=== PATIENT | female | born 1970 | race Two or more races ===

== ENCOUNTER 2022-01-07 23:05 | Emergency (ER) | payer MEDICAID ==
[~2022-01-07] VITALS: Ht 162.6 cm; Wt 60.3 kg
--- NOTE | 2022-01-07 23:12 | NUR ---
pt bib ra, for altered mental status possible post seizure.
[2022-01-08] MEDS ORDERED: LORAZEPAM 2 MG/1 ML VIAL ONE (00:11)
[2022-01-08] MEDS ORDERED: LORAZEPAM 2 MG/1 ML VIAL IV ONE (00:15)
[2022-01-08 00:29] LABS: HEMATOCRIT 34.3 % (31.2-41.9); MEAN CORPUSCULAR HEMOGLOBIN 30.6 uug (24.7-32.8); MEAN CORPUSCULAR VOLUME 89.5 fL (75.5-95.3); PLATELET COUNT (AUTO) 260 K/uL (179-408)
[2022-01-08 00:32] LABS: CARBON DIOXIDE 24 mmol/L (21-32); CHLORIDE 109 mmol/L (98-107); CREATININE 1.2 mg/dL (0.6-1.3); GLUCOSE 149 mg/dL (74-106); POTASSIUM 3.2 mmol/L (3.5-5.1); UREA NITROGEN, BLOOD 15 mg/dL (7-18)
[2022-01-08 00:38] LABS: ALANINE AMINOTRANSFERASE 24 U/L (14-59); ALKALINE PHOSPHATASE 115 U/L (50-136); ASPARTATE AMINOTRANSFERASE 8 U/L (15-37); BILIRUBIN,DIRECT < 0.1 mg/dL (0.0-0.2); BILIRUBIN,TOTAL 0.2 mg/dL (0.2-1.0); TOTAL PROTEIN, SERUM 7.4 g/dL (6.4-8.2)
[2022-01-08 00:41] LABS: ACETAMINOPHEN < 2.0 ug/mL (10-30)
[2022-01-08 01:00] LABS: ETHANOL < 3 MG/DL (0-0)
[2022-01-08] MEDS ORDERED: POTASSIUM BICARBONATE/CIT AC 25 MEQ TABLET.EFF PO ONE (01:00)
[2022-01-08] MEDS ORDERED: LORA-259 PO (01:24)
[2022-01-08 01:51] VITALS: BP 110/76
--- NOTE | 2022-01-08 01:51 | NUR ---
Patient discharged to home in stable condition. Written and verbal after care instructions given. Patient verbalizes understanding of instructions. Stressed follow up or return to ER for worsening s/s.
== END 2022-01-08 01:52 | disposition home or self-care (01) ==
LOC: ER 23:07
DX: F41.9 Anxiety disorder, unspecified (principal); E87.6 Hypokalemia; R94.31 Abnormal electrocardiogram [ECG] [EKG]; G40.909 Epilepsy, unspecified, not intractable, without status epilepticus
CPT/HCPCS: 36415; 70450; 80048; 80076; 80299; 80320; 83735; 85025; 93005; 96374; 99285; J2060; A4663; G0480

== ENCOUNTER 2024-07-17 16:39 | Emergency (ER) | payer MEDICAID ==
[~2024-07-17] VITALS: Ht 154.9 cm; Wt 55.3 kg
[~2024-07-17 16:39] MED LIST: LORA-259 PO
[2024-07-17] MEDS ORDERED: TOPI15CA11 PO (18:21)
[2024-07-17] MEDS ORDERED: LACO50TA2 PO (18:21)
[2024-07-17 18:22] LABS: BASOPHILS # (AUTO) 0.1 K/UL (0.0-0.2); BASOPHILS % (AUTO) 1.2 % (0.0-2.0); EOSINOPHILS # (AUTO) 0.1 K/uL (0.0-0.7); EOSINOPHILS % (AUTO) 1.4 % (0.0-7.0); HEMATOCRIT 34.4 % (31.2-41.9); HEMOGLOBIN 11.6 g/dL (10.9-14.3); LYMPHOCYTES # (AUTO) 1.9 K/uL (0.8-4.8); LYMPHOCYTES % (AUTO) 33.2 % (20.5-51.5); MEAN CORPUSCULAR HEMOGLOBIN 30.7 uug (24.7-32.8); MEAN CORPUSCULAR HGB CONC 34 g/dL (32.3-35.6); MEAN CORPUSCULAR VOLUME 91.3 fL (75.5-95.3); MONOCYTES # (AUTO) 0.3 K/uL (0.1-1.30); MONOCYTES % (AUTO) 5.9 % (0.0-11.0); NEUTROPHILS # (AUTO) 3.4 K/uL (1.8-8.9); NEUTROPHILS % (AUTO) 58.3 % (38.5-71.5); PLATELET COUNT (AUTO) 266 K/uL (179-408); RED BLOOD CELL COUNT(AUTO) 3.77 MIL/uL (3.63-4.92); RED CELL DISTRIBUTION WIDTH 13.2 % (12.3-17.7); WHITE BLOOD COUNT (AUTO) 5.8 K/uL (3.8-11.8)
[2024-07-17 18:29] LABS: DIFFERENTIAL COMMENT 1
[2024-07-17 18:31] LABS: CALCIUM 9.6 mg/dL (8.5-10.1); CREATININE 0.7 mg/dL (0.6-1.3); POTASSIUM 3.6 mmol/L (3.5-5.1)
[2024-07-17 18:37] LABS: ALBUMIN 3.9 g/dL (3.4-5.0); BILIRUBIN,DIRECT 0.1 mg/dL (0.0-0.2); BILIRUBIN,TOTAL 0.3 mg/dL (0.2-1.0); MAGNESIUM 2.1 mg/dL (1.8-2.4); TOTAL PROTEIN, SERUM 7.3 g/dL (6.4-8.2)
[2024-07-17 18:45] LABS: THYROID STIMULATING HORMONE 4.014 mIU/mL (0.358-3.740)
[2024-07-18 02:03] VITALS: BP 115/64; TEMP 98.7; O2SAT 100
== END 2024-07-17 22:00 | disposition home or self-care (01) ==
LOC: ER 16:39 → MERGE 16:39 → ER 22:00
DX: R07.89 Other chest pain (principal); G40.909 Epilepsy, unspecified, not intractable, without status epilepticus; J21.9 Acute bronchiolitis, unspecified; Z86.73 Personal history of transient ischemic attack (TIA), and cerebral infarction without residual deficits
CPT/HCPCS: 36415; 71045; 83735; 84443; 84484; 85025; A4606; A4663